=== PATIENT | male | born 1975 | race African-American/Black ===

== ENCOUNTER 2018-05-16 22:57 | Emergency (ER) | payer SELFPAY ==
--- NOTE | 2018-05-16 23:21 | PDOC ---
Attending Attestation - HPI HPI: 05/17/18 01:37 The patient is a 43 year old male with no past medical history who presents to the emergency department for evaluation of neck pain. The patient reports a 2 day history of neck pain. He reports difficulty turning his head towards the right after waking up. Pt reports taking motrin at 3pm with no alleviation to his pain. He reports no other complaints at this time. The patient denies sensory changes, cp, sob, headache, and dizziness. Denies f/c , n/v, and any bowel/urinary symptoms. Allergies: NKA Social History: No reported alcohol, cigarette, or drug use. - Physicial Exam PE: I agree with the resident's findings on the physical exam. <Lenny Oliveira - Last Filed: 05/17/18 03:31> - Resident Resident Name: Luz Easley - ED Attending Attestation I have performed the following: I have examined & evaluated the patient, The case was reviewed & discussed with the resident, I agree w/resident's findings & plan - Medical Decision Making 05/17/18 20:54 Home with analgesia <Jade Rodarte - Last Filed: 05/17/18 20:54> Attestations - Attestations Documentation prepared by Lenny Oliveira, acting as medical record transcriber for Jade Rodarte MD. <Lenny Oliveira - Last Filed: 05/17/18 03:31>
[2018-05-16 23:22] VITALS: BP 131/74; PULSE 68; TEMP 98.7; BMI 25.0
[2018-05-16] MEDS ORDERED: METHOCARBAMOL 500 MG TABLET PO ONE (23:45)
[2018-05-16] MEDS ORDERED: KETOROLAC TROMETHAMINE 30 MG/1 ML VIAL IM ONE (23:45)
[2018-05-16] MEDS ORDERED: KETOROLAC TROMETHAMINE 30 MG/1 ML VIAL ONE (23:50)
[2018-05-16] MEDS ORDERED: METHOCARBAMOL 500 MG TABLET ONE (23:50)
--- NOTE | 2018-05-16 23:57 | PDOC ---
History of Present Illness - General Chief Complaint: Pain, Acute Stated Complaint: NECK PAIN Time Seen by Provider: 05/16/18 23:17 - History of Present Illness Initial Comments: 05/16/18 23:52 43 year old w/ no past medical history who presents with 2 days of an inability to turn his neck to the R side that started when he awoke from sleep two days ago. He took some ibuprofen without relief. He denies any chest pain, nausea, vomting, diarrhea, constipation, abdominal pain, fever. Denies any trauma or heavy lifiting. He has no other complaints at bedside. PMHX: none PSHX: none Meds: none Allergies: NKDA Tob: none Etoh: none Rec drugs: none Past History - Past Medical History Allergies/Adverse Reactions: Allergies Allergy/AdvReac Type Severity Reaction Status Date / Time No Known Allergies Allergy Verified 05/16/18 23:21 Home Medications: Ambulatory Orders Tramadol HCl [Ultram] 50 mg PO QID #20 tablet MDD 4 04/18/16 Acetaminophen 325 mg PO Q6H PRN #30 tablet 05/17/18 Acetaminophen [Tylenol] 325 mg PO BID #10 capsule 05/17/18 Methocarbamol [Robaxin -] 500 mg PO BID PRN #14 tablet 05/17/18 Methocarbamol [Robaxin -] 500 mg PO TID #14 tablet 05/17/18 COPD: No - Immunization History Immunization Up to Date: Yes - Suicide/Smoking/Psychosocial Hx Smoking History: Current every day smoker Number of Cigarettes Smoked Daily: 5 Information on smoking cessation initiated: No Hx Alcohol Use: No Drug/Substance Use Hx: No Substance Use Type: None Review of Systems - Review of Systems Able to Perform ROS?: Yes Is the patient limited Lebanese proficient: No Constitutional: No: Chills, Diaphoresis, Fever HEENTM: No: Eye Pain, Blurred Vision, Nose Congestion, Tinnitus Respiratory: No: Cough, Orthopnea, Shortness of Breath Cardiac (ROS): No: Chest Pain ABD/GI: No: Constipated, Diarrhea, Nausea, Vomiting Musculoskeletal: Yes: Neck Pain Neurological: No: Headache *Physical Exam - Vital Signs Last Vital Signs Temp Pulse Resp BP Pulse Ox 98.7 F 68 20 131/74 99 05/16/18 23:21 05/16/18 23:21 05/16/18 23:21 05/16/18 23:21 05/16/18 23:21 - Physical Exam Comments: 05/16/18 23:55 GENERAL: Awake, alert, and fully oriented, in no acute distress HEAD: No signs of trauma, normocephalic, atraumatic EYES: EOMI, sclera anicteric, conjunctiva clear ENT: oropharynx clear without exudates. Moist mucosa NECK: Limited ROM 20 degrees towards R shoulder 2/2 pain, + tenderness to palpation of R side of neck and R shoulder, no lymphadenopathy or masses LUNGS: No distress, speaks full sentences, clear to auscultation bilaterally HEART: Regular rate and rhythm, normal S1 and S2, no murmurs, rubs or gallops, peripheral pulses normal and equal bilaterally. ABDOMEN: Soft, nontender, normoactive bowel sounds. No guarding, no rebound. No masses EXTREMITIES : Normal inspection, Normal range of motion, no edema. No clubbing or cyanosis. NEUROLOGICAL: Normal speech, normal gait, no focal sensorimotor deficits SKIN: Warm, Dry, normal turgor, no rashes or lesions noted 05/16/18 23:58 Medical Decision Making - Medical Decision Making 05/16/18 23:57 43 year old w/ no past medical history who presents with 2 days of an inability to turn his neck to the R side that started when he awoke from sleep two days ago. The patient's symptoms and history are most consistent with torticollis vs muscle strain. We will treat patient with muscle relaxers, NSAID and ice and assess for symptomatic relief. 05/16/18 23:59 Patient expressed relief of symptoms at bedside and ability to move neck fully. He desires to be discharged. He will be given prescription for main relief and muscle relaxant medication with strict return precautions. *DC/Admit/Observation/Transfer Diagnosis at time of Disposition: Torticollis - Discharge Dispostion Disposition: HOME Condition at time of disposition: Guarded Decision to Admit order: No - Prescriptions Prescriptions: Acetaminophen 325 mg PO Q6H PRN #30 tablet PRN Reason: Pain Acetaminophen [Tylenol] 325 mg PO BID #10 capsule Methocarbamol [Robaxin -] 500 mg PO BID PRN #14 tablet PRN Reason: Pain Methocarbamol [Robaxin -] 500 mg PO TID #14 tablet - Referrals - Patient Instructions Printed Discharge Instructions: DI for Torticollis Additional Instructions: You were seen in the ED for neck pain. In the ED you were given medications for symptomatic relief. Please follow up with your Primary care physician in 1-2 weeks for further assessment and evaluation. Return to the ED immediately if symptoms worsen, fever develops, headaches, ringing in the ears, inability to use facial muscles, chest pain or shortness of breathe. - Post Discharge Activity
--- NOTE | 2018-05-17 10:36 | PDOC ---
Patient Follow-up (Call Back) - Post ED Follow - Up Condition at time of discharge: Guarded Disposition at time of original discharge: HOME - Disposition Additional Instructions/Notes: Received a call from patient his medications were not sent to the to [facility] on [facility]. Upon review of medical record, it does not appear there is pharmacy on file for the patient, however a prescription for Robaxin and Tylenol was prescribed by Dr. Orta overnight. I entered his pharmacy into the system and resent prescriptions.
== END 2018-05-17 01:03 | disposition home or self-care (01) ==
LOC: JER 22:57
PROC: 3E0333Z Introduction of Anti-inflammatory into Peripheral Vein, Percutaneous Approach (ICD-10-PCS; principal; 2018-05-16)
DX: M43.6 Torticollis (principal)
CPT/HCPCS: 99282-25

== ENCOUNTER 2019-11-14 00:47 | Emergency (ER) | payer SELFPAY ==
[2019-11-14 01:26] VITALS: TEMP 98; BMI 22.1
--- NOTE | 2019-11-14 01:37 | PDOC ---
History of Present Illness <Jade Rodarte - Last Filed: 11/14/19 04:06> - General History Source: Patient Exam Limitations: No Limitations - History of Present Illness Initial Comments: 11/14/19 04:26 44 yo M with a hx of a bullent wound in the left side of his back presents to the emergency department with left chest wall pain that has been ongoing for 2-3 <Farhat Ron - Last Filed: 11/14/19 04:30> - General Chief Complaint: Chest Pain Stated Complaint: CHEST AND SHOULDER PAIN Past History <Jade Rodarte - Last Filed: 11/14/19 04:06> - Past Medical History COPD: No - Immunization History Immunization Up to Date: Yes - Psycho Social/Smoking Cessation Hx Smoking History: Never smoked Have you smoked in the past 12 months: No Number of Cigarettes Smoked Daily: 5 Information on smoking cessation initiated: No Hx Alcohol Use: No Drug/Substance Use Hx: No Substance Use Type: None <Farhat Ron - Last Filed: 11/14/19 04:30> - Past Medical History Allergies/Adverse Reactions: Allergies Allergy/AdvReac Type Severity Reaction Status Date / Time No Known Allergies Allergy Verified 11/14/19 01:11 Home Medications: Ambulatory Orders Acetaminophen [Tylenol] 325 mg PO BID #10 capsule 05/17/18 *Physical Exam - Vital Signs Last Vital Signs Temp Pulse Resp BP Pulse Ox 98.0 F 81 20 103/71 98 11/14/19 01:15 11/14/19 01:15 11/14/19 01:15 11/14/19 01:15 11/14/19 01:15 <Jade Rodarte - Last Filed: 11/14/19 04:06> - Vital Signs Last Vital Signs Temp Pulse Resp BP Pulse Ox 98.0 F 81 20 103/71 98 11/14/19 01:15 11/14/19 01:15 11/14/19 01:15 11/14/19 01:15 11/14/19 01:15 <Farhat Ron - Last Filed: 11/14/19 04:30> ED Treatment Course - LABORATORY CBC & Chemistry Diagram: 11/14/19 02:12 11/14/19 02:12 - ADDITIONAL ORDERS Additional order review: Laboratory Results 11/14/19 11/14/19 02:12 02:12 Sodium 138 Potassium 4.3 Chloride 105 Carbon Dioxide 29 Anion Gap 4 L BUN 17.6 Creatinine 0.9 Est GFR (CKD-EPI)AfAm 119.97 Est GFR (CKD-EPI)NonAf 103.51 Random Glucose 86 Calcium 9.6 Total Bilirubin 0.8 AST 27 ALT 32 Alkaline Phosphatase 107 Creatine Kinase 194 Troponin I < 0.02 Total Protein 7.4 Albumin 4.2 11/14/19 02:12 RBC 4.80 MCV 90.8 MCHC 33.9 RDW 12.5 MPV 10.1 Neutrophils % 51.9 Lymphocytes % 35.8 Monocytes % 7.6 Eosinophils % 4.0 Basophils % 0.7 - Medications Given in the ED: ED Medications Discontinued Medications Generic Name Dose Route Start Last Admin Trade Name Carlosq PRN Reason Stop Dose Admin Acetaminophen 1,000 mg 11/14/19 01:38 11/14/19 02:45 Ofirmev Injection - IVPB 11/14/19 01:39 1,000 mg ONCE ONE Administration Famotidine/Sodium Chloride 20 mg in 50 mls @ 100 mls/hr 11/14/19 01:38 02:45 Pepcid 20 Mg Premixed Ivpb - IVPB 11/14/19 02:07 100 mls/hr ONCE ONE Administration Sodium Chloride 1,000 mls @ 1,000 mls/hr 11/14/19 01:38 11/14/19 02:45 Normal Saline - IV 11/14/19 02:37 1,000 mls/hr ASDIR STA Administration Ondansetron HCl 4 mg 11/14/19 01:38 11/14/19 02:45 Zofran Injection IVPUSH 11/14/19 01:39 4 mg ONCE ONE Administration <Jade Rodarte - Last Filed: 11/14/19 04:06> - LABORATORY CBC & Chemistry Diagram: 11/14/19 02:12 11/14/19 02:12 <Farhat Ron - Last Filed: 11/14/19 04:30> Discharge - Discharge Information Problems reviewed: Yes <Jade Rodarte - Last Filed: 11/14/19 04:06> - Discharge Information Problems reviewed: Yes <Farhat oRn - Last Filed: 11/14/19 04:30> - Discharge Information Clinical Impression/Diagnosis: Gastritis and duodenitis Condition: Improved Disposition: HOME - Follow up/Referral Referrals: Nina Escobedo MD [Staff Physician] - - Patient Discharge Instructions Patient Printed Discharge Instructions: Gastritis, DI for Atypical Chest Pain Additional Instructions: You were seen for your chest wall pain. Your labs were within normal limits. Please follow up with your primary medical doctor within 1 week after discharge. Please follow up with Dr. Escobedo within 1 week after discharge for follow up care and management. Please return to the emergency department if you have worsening symptoms or new concerning symptoms. Thank you. - Post Discharge Activity Work/Back to School Note: Back to Work
[2019-11-14] MEDS ORDERED: ACETAMINOPHEN 1000 MG/100 ML VIAL (NON FORMULARY) IVPB ONE (01:38)
[2019-11-14] MEDS ORDERED: ONDANSETRON 4 MG/2 ML VIAL IVPUSH ONE (01:38)
[2019-11-14] MEDS ORDERED: SODIUM CHLORIDE 1,000 ML IV STA (01:38)
[2019-11-14] MEDS ORDERED: FAMOTIDINE 20 MG/50 ML IVPB 20 MG/50 ML MG IVPB ONE ×2 (01:38→02:43)
--- NOTE | 2019-11-14 01:55 | PDOC ---
Attending Attestation - Resident Resident Name: Farhat Ron - ED Attending Attestation I have performed the following: I have examined & evaluated the patient, The case was reviewed & discussed with the resident, I agree w/resident's findings & plan - HPI HPI: 11/14/19 06:38 Pt comes with CP and epigastric pain and a burning sensation going up the center of his chest. - Physicial Exam PE: 11/14/19 06:38 Heart S1S2 RRR Lungs CTA B Abd soft NT ND no flank pain no C/C/E - Medical Decision Making 11/14/19 04:04 Pt has gastritis; he is a smoker and he is thin. He will follow with GI as an outpatient Pt advised to eat non-scidic foods and eat more meals and smaller meals.
[2019-11-14] MEDS ORDERED: ACETAMINOPHEN INJECTION 100 ML IVPB ONE (02:42)
[2019-11-14 02:43] LABS: BASO % 0.7 % (0-2.0); HEMATOCRIT 43.6 % (35.4-49); HEMOGLOBIN 14.8 GM/dL (11.7-16.9); LYMPH % 35.8 % (8-40); MCH 30.8 pg (25.7-33.7); MCHC 33.9 g/dl (32.0-35.9); MEAN CELL VOLUME 90.8 fl (80-96); MEAN PLT VOLUME 10.1 fl (7.5-11.1); MONO % 7.6 % (3.8-10.2); NEUT % 51.9 % (42.8-82.8); PLATELET COUNT 165 K/MM3 (134-434); RDW 12.5 % (11.9-15.9); WHITE BLOOD COUNT 6.7 K/mm3 (4.0-10.0)
[2019-11-14] MEDS ORDERED: ONDANSETRON 4 MG/2 ML VIAL ONE (02:43)
[2019-11-14 04:00] LABS: ALBUMIN 4.2 g/dl (3.4-5.0); BILIRUBIN,TOTAL 0.8 mg/dL (0.2-1); BLOOD UREA NITROGEN 17.6 mg/dL (7-18); CALCIUM 9.6 mg/dL (8.5-10.1); CREATININE 0.9 mg/dL (0.55-1.3); POTASSIUM 4.3 mmol/L (3.5-5.1); TOT PROT 7.4 g/dl (6.4-8.2)
[2019-11-14 04:46] VITALS: BP 102/69; PULSE 69
--- NOTE | 2019-11-14 12:24 | EKG ---
Test Reason : Blood Pressure : / mmHG Vent. Rate : 074 BPM Atrial Rate : 074 BPM P-R Int : 164 ms QRS Dur : 088 ms QT Int : 350 ms P-R-T Axes : 075 072 071 degrees QTc Int : 388 ms NORMAL SINUS RHYTHM VOLTAGE CRITERIA FOR LEFT VENTRICULAR HYPERTROPHY EARLY REPOLARIZATION ABNORMAL ECG WHEN COMPARED WITH ECG OF 18-APR-2016 21:31, NO SIGNIFICANT CHANGE WAS FOUND Confirmed by KALEY BONNER MD ([id number]) on 11/14/2019 12:23:30 PM Referred By: Confirmed By:KALEY BONNER MD
== END 2019-11-14 04:30 | disposition home or self-care (01) ==
LOC: JER 00:47
PROC: 3E033GC Introduction of Other Therapeutic Substance into Peripheral Vein, Percutaneous Approach (ICD-10-PCS; principal; 2019-11-14)
PROC: 3E033GC Introduction of Other Therapeutic Substance into Peripheral Vein, Percutaneous Approach (ICD-10-PCS; 2019-11-14)
PROC: 3E033NZ Introduction of Analgesics, Hypnotics, Sedatives into Peripheral Vein, Percutaneous Approach (ICD-10-PCS; 2019-11-14)
DX: K29.90 Gastroduodenitis, unspecified, without bleeding (principal)
CPT/HCPCS: 36415; 71045-TC-FY; 80053; 82550; 82553; 84484; 85025; 93005; 93010; 99284-25; J0131; J7030

== ENCOUNTER 2021-07-09 08:04 | Emergency (ER) | payer OTHER ==
[2021-07-09 08:12] VITALS: BP 122/70; PULSE 65; TEMP 97.6; BMI 21.4
[2021-07-09] MEDS ORDERED: KETOROLAC TROMETHAMINE 60 MG/2 ML VIAL IM ONE (08:51)
[2021-07-09] MEDS ORDERED: ACETAMINOPHEN 500 MG TABLET (FP) PO ONE (08:57)
[2021-07-09] MEDS ORDERED: ACETAMINOPHEN 500 MG TABLET (FP) ONE (08:58)
[2021-07-09] MEDS ORDERED: KETOROLAC TROMETHAMINE 60 MG/2 ML VIAL ONE (08:58)
== END 2021-07-09 09:48 | disposition home or self-care (01) ==
LOC: JERFT 08:04
PROC: 3E0233Z Introduction of Anti-inflammatory into Muscle, Percutaneous Approach (ICD-10-PCS; principal; 2021-07-09)
DX: M54.5 Low back pain (principal); X50.0XXA Overexertion from strenuous movement or load, initial encounter
CPT/HCPCS: 99284-25